=== PATIENT | male | born 2005 | race Caucasian/White ===

== ENCOUNTER 2023-07-04 15:58 | Emergency (ER) | payer SELFPAY ==
[2023-07-04 16:06] VITALS: BP 126/80; PULSE 96; RESP 16; TEMP 36.8; O2SAT 99; BMI 22.8
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
[2023-07-04] MEDS: ACETAMINOPHEN 325 MG TABLET 975 MG PO (16:38)
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
[2023-07-04] MEDS: KETOROLAC 30 MG/ML VIAL 15 MG IM (16:39)
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
== END 2023-07-04 19:01 | disposition home or self-care (01) ==
PROVIDERS: Emergency Provider Physician Assistant; Referring Provider Student in an Organized Health Care Education/Training Program
DX: M54.2 Cervicalgia (principal); M54.6 Pain in thoracic spine; V29.99XA Rider (driver) (passenger) of other motorcycle injured in unspecified traffic accident, initial encounter
CPT/HCPCS: 70450; 72125; 72128; 96372; 99283; 99284; J1885